=== PATIENT | female | born 1960 | race Caucasian/White ===

== ENCOUNTER 2017-07-03 19:41 | Observation (INO) | payer BC ==
[2017-07-03 21:01] LABS: #Basophils 0.1 thou/uL (0.0-0.2); #Eosinphils 0.5 thou/uL (0.0-0.7); #Lymphocytes 3.5 thou/uL (1.20-3.40); #Monocytes 0.5 thou/uL (0.11-0.59); #Neutrophils 3.6 thou/uL (1.40-6.50); %Basophils 0.9 % (0.0-1.0); %Eosinophils 6.1 % (0.0-10.0); %Lymphocytes 43.1 % (21.0-51.0); %Monocytes 5.7 % (0.0-10.0); Hematocrit 41.4 % (36.0-47.0); Mean Platelet Volume 6.8 fL (7.4-10.4); White Blood Cell (WBC) Count 8.2 thou/uL (4.8-10.8)
[2017-07-03] MEDS ORDERED: Nitroglycerin 0.4 MG TAB (25 Tab Bottle) ONE (21:08)
[2017-07-03] MEDS ORDERED: Nitroglycerin 2% Ointment 1 INCH/1 GM Packet ONE (21:08)
--- NOTE | 2017-07-03 21:14 | RAD ---
PA AND LATERAL CHEST: Date: 07-03-17 History: Chest pain, high blood pressure. Comparison: 02-14-14 FINDINGS: Cardiac silhouette and pulmonary vasculature are within normal limits. The lungs remain clear. Metal lic densities overlie the cervical spine, likely related to anterior fusion with intradiscal prosthe sis. Surgical clips overlie the right upper quadrant. IMPRESSION: No acute cardiopulmonary process. POS: NAEEM
[2017-07-03 21:29] LABS: ALT (SGPT) 48 U/L (8-55); AST (SGOT) 44 U/L (5-34); Alkaline Phosphatase 79 U/L (40-150); Anion Gap 16 mmol/L (10-20); BUN (Urea Nitrogen) 9 mg/dL (9.8-20.1); Bilirubin, Total 0.6 mg/dL (0.2-1.2); CK (CPK) 60 U/L (29-168); Calc. Creatinine Clearance 0 mL/min (70-130); Calcium 10.2 mg/dL (7.8-10.44); Carbon Dioxide 27 mmol/L (22-29); Chloride 107 mmol/L (98-107); Estimated GFR-MDRD 78; Globulin 3.1 g/dL (2.4-3.5); Protein, Total 7.3 g/dL (6.0-8.3)
[2017-07-03 21:33] LABS: Troponin I Less than 0.010 ng/mL (< 0.028)
[2017-07-04 00:10] LABS: Troponin I Less than 0.010 ng/mL (< 0.028)
[2017-07-04] MEDS ORDERED: HYDROcodone/Acetaminophen 5/325 mg Tablet PO PRN ×2 (00:32)
[2017-07-04] MEDS ORDERED: Ondansetron ODT 4 MG TAB SL PRN (00:32)
[2017-07-04] MEDS ORDERED: Ondansetron HCl/PF 4 MG/2 ML Vial IVP PRN ×2 (00:32→03:19)
[2017-07-04] MEDS ORDERED: Acetaminophen 325 MG TAB PO PRN ×2 (00:32→03:19)
[2017-07-04 00:50] VITALS: BMI 32.8
[2017-07-04] MEDS ORDERED: Mag-Al 1200 mg/1200 mg/30 ML UDCUP PO PRN (03:19)
[2017-07-04] MEDS ORDERED: Ondansetron ODT 4 MG TAB PO PRN (03:19)
--- NOTE | 2017-07-04 03:38 | HP ---
PRIMARY CARE PHYSICIAN: Dr. Li at [facility]. CHIEF COMPLAINT: Chest pain. HISTORY OF PRESENT ILLNESS: Ms. Dorsey is a pleasant 57-year-old female that has no significant pas t medical history. She says she was fine until earlier yesterday evening around 6:15 p.m. She says that she was just walking out of the bathroom when suddenly she developed a sharp pain in the cente r of her chest, which then radiated underneath her left breast. She says it was worse when she took in a deep breath or made certain movements and then about 2 minutes after the pain started, she fel t a fluttering like sensation in her chest as well. She said the pain was about 8-9/10 and it would basically come and go, but due to the severity of the pain, she called an ambulance to be brought t o the hospital to have it evaluated. She says all in all, it lasted about 6 hours and it did not go away until still she came to the ER. She denies any nausea, vomiting or diaphoresis. There is no significant radiation to the pain. There has been no dizziness or lightheadedness. She also denies any PND or orthopnea and currently, she is chest pain free. The patient also denies any cough or c ongestion and denies any heavy lifting, but she does say that she had an episode about a year ago wh ere she strained a muscle, the pain was similar, but at this time, the pain went away within a few h ours, but before the pain lasted for days at a time. REVIEW OF SYSTEMS: Constitutional: There have been no fevers, chills, no night sweats, no weight l oss. HEENT: No headaches, no dizziness, no visual changes, no sore throat, no rhinorrhea, neck anthony n, no adenopathy. Pulmonary: No hemoptysis, no cough, no wheezing. Cardiovascular: As the history of present illness. Gastrointestinal: No abdominal pain, no nausea , no vomiting, no change in bowels. Genitourinary: No urinary frequency, hematuria, no hesitancy. Neurologic: No focal weakness, numbness, no seizures. Psychiatric: No symptoms of anxiety or dep ression. Skin and Integument: No skin changes. No rash. 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 PAST SURGICAL HISTORY: She has had a left carpal tunnel release, cholecystectomy, kidney stone surg andreina which sounds like lithotripsy, C2-C7 laminectomy as well as the C5 and C6 diskectomy. ALLERGIES: MORPHINE, which causes itching. SOCIAL HISTORY: She is , has 2 children. She is a nonsmoker, nondrinker. FAMILY HISTORY: Significant for a father who had a stent in his 60s as well as hypertension. CURRENT MEDICATIONS: Include gabapentin 400 mg 3 times a day, Zyrtec 10 mg daily, Singulair 10 mg d aily, and Raloxifene 60 mg daily. PHYSICAL EXAMINATION: GENERAL: She is alert and oriented. She appears to be in no acute distress. VITAL SIGNS: Blood pressure was 122/58, heart rate 74, respiratory rate of 16, temperature is 98.7. HEENT: Her pupils are equal, round, and reactive. Extraocular muscles are intact. Her sclerae are anicteric. Throat: There is no erythema, no exudates. NECK: No adenopathy, no bruits. LUNGS: Clear. No wheezing, no rales. CARDIOVASCULAR: She has a normal S1 and S2. I did not appreciate an S3 or S4. No murmurs, clicks, rubs. ABDOMEN: Obese, it is soft, it is nontender, nondistended. Positive for bowel sounds. There is no rebound, no guarding. EXTREMITIES: No clubbing, cyanosis, no edema. LABORATORY DATA AND X-RAY FINDINGS: White blood cell count was 8.2, hemoglobin 13.7, hematocrit is 41.4, platelets 312. Sodium 145, potassium 5.4, chloride is 107, CO2 is 27, BUN of 9, creatinine 0. 76, glucose is 102. Her EKG was sinus rhythm with no significant ST wave changes. ASSESSMENT AND PLAN: This is a 57-year-old female that presents to the emergency room with chest pa in, which is more or less atypical in description. She had a D-dimer, which was negative and she de nies any significant respiratory symptoms nor any heavy lifting. Therefore, it is reasonable to rul e out coronary artery disease as a cause of her symptoms. She will be placed in observation, ruled out, and we will get a lipid panel as well as a nuclear stress test to help stratify her risk for co ronary artery disease. If her stress test is negative, then her symptoms could be related to her ce rvical spine disease.
[2017-07-04 04:00] LABS: Troponin I Less than 0.010 ng/mL (< 0.028)
[2017-07-04] MEDS ORDERED: Nitroglycerin 2% Ointment 1 INCH/1 GM Packet TOP SCH ×2 (06:00)
[2017-07-04 07:36] VITALS: BP 145/63; TEMP 98.4
[2017-07-04] MEDS ORDERED: Cetirizine HCl 10 MG TAB PO SCH (09:00)
[2017-07-04] MEDS ORDERED: Loratadine 10 MG TAB PO SCH (09:00)
[2017-07-04] MEDS ORDERED: Enoxaparin Sodium 40 MG/0.4 ML SYRINGE SC SCH (09:00)
[2017-07-04] MEDS ORDERED: Gabapentin 400 MG CAP PO SCH (09:00)
[2017-07-04] MEDS ORDERED: Aspirin 325 mg Enteric Coated Tablet PO SCH (09:00)
[2017-07-04] MEDS ORDERED: FLU VACC QS2017-18 36 mo. & older 0.5 ML SYRINGE IM ONE (09:00)
[2017-07-04] MEDS ORDERED: Montelukast Sodium 10 mg Tablet PO SCH (09:00)
[2017-07-04] MEDS ORDERED: Aspirin 325 MG TAB PO SCH (09:00)
--- NOTE | 2017-07-04 14:26 | DIS ---
TRANSFER OF CARE NOTE DATE OF ADMISSION: 07/03/2017 DATE OF DISCHARGE: 07/04/2017 PRIMARY CARE PHYSICIAN: Roxana Li. DISCHARGE DISPOSITION: Home. FINAL DIAGNOSES: 1. Chest pain, noncardiac. 2. History of congenital small spinal canal. DISCHARGE MEDICATIONS: Same as her home medications, Raloxifene 60 mg a day, Singulair 10 mg a day, gabapentin 400 mg 4 times a day, Zyrtec 10 mg a day. ALLERGIES: MORPHINE. PENDING AT THE TIME OF DISCHARGE: Nothing. CODE STATUS: Full. HOSPITAL COURSE: The patient was admitted with sharp chest pain radiated under her left breast, jean claude t to take a deep breath. She is now fine. Her laboratory was unrevealing. EKG; sinus rhythm witho ut significant ST-T abnormality. CBC normal. D-dimer within normal limits. Comp metabolic profile ; borderline potassium 5.4, ALT 44. Cardiac enzymes normal x3. Patient underwent a normal cardiac stress test. I have discussed the results with her. She is comfortable with going home. She has b rut instructed to follow up with her primary care provider in 7 days. CONSULTATIONS: None. PROCEDURES: None.
--- NOTE | 2017-07-04 15:58 | NM ---
NUCLEAR MEDICINE CARDIAC MYOCARDIAL PERFUSION SPECT EJECTION FRACTION STUDY WALL MOTION CINE: HISTORY: 57-year-old female with acute chest pain. TECHNIQUE: This is a stress-only study. Number of days: 1 Rest study: not performed Pharmacologic stress: Lexiscan dose: 0.4 mg Stress study: Tc99m sestamibi (Cardiolite) dose: 33.0 mCi FINDINGS: Uptake throughout the left ventricular myocardium is homogeneous with no perfusion defects. EJECTION FRACTION STUDY EF = 80% WALL MOTION CINE Normal. IMPRESSION: Normal. ERIN Swann POS: ISMA
--- NOTE | 2017-07-09 12:00 | STRESS ---
Acquisition Time: 2017-07-04 11:11:19 Total Exercise Time: 00:06:00 Test Indications: CHEST PAIN Medications: Protocol: PUSHPA Max HR: 153 BPM 95% of Pred: 161 BPM Max BP: 136/088 mmHG Max Work Load: 7.0 METS THE PATIENT EXERCISED FOR 6:00 ON A PUSHPA PROTOCOL. PEAK HEART RATE= 151 BPM AND TARGET HEART RATE= 137 BPM. SHE DID NOT DEVELOP CHEST PAIN. THERE WAS NO SIGNIFICANT ST DEPRESSION. NEGATIVE EXERCISE TREADMILL TEST FOR ISCHEMIA BY ECG CRITERIA. AWAIT NUCLEAR IMAGES FOR DEFINITIVE DIAGNOSIS. Confirmed by LOKESH ROLLE ([id number]), editor sound NASIM RYDER ([id number]) on 07/09/2017 11:59:39 AM Referred By: MD Jenny SANTOYO Confirmed By:LOKESH ROLLE
== END 2017-07-04 14:44 | disposition home or self-care (01) ==
LOC: ERS 19:41 → 2SW 21:50
PROVIDERS: ADMIT Internal Medicine; ATTEND Internal Medicine
DX: R07.89 Other chest pain (principal); M50.30 Other cervical disc degeneration, unspecified cervical region; Z79.899 Other long term (current) drug therapy; Z88.5 Allergy status to narcotic agent; Z90.49 Acquired absence of other specified parts of digestive tract; Z98.890 Other specified postprocedural states; Z82.49 Family history of ischemic heart disease and other diseases of the circulatory system
CPT/HCPCS: 36415; 71020; 78452; 80053; 80061; 82553; 83690; 84484; 85025; 85379; 93005; 93017; 94760; A9500; G0378

== ENCOUNTER 2018-11-19 19:38 | Observation (INO) | payer BC ==
[2018-11-19 20:41] LABS: #Basophils 0.1 thou/uL (0.0-0.2); #Eosinphils 0.4 thou/uL (0.0-0.7); #Lymphocytes 3.2 thou/uL (1.20-3.40); #Monocytes 0.3 thou/uL (0.11-0.59); %Basophils 1.1 % (0.0-1.0); %Eosinophils 5.4 % (0.0-10.0); %Monocytes 4.3 % (0.0-10.0); %Neutrophils 43.2 % (42.0-75.0); Hemoglobin 14.4 g/dL (12.0-16.0); Mean Corpuscular HGB CONC 32.7 g/dL (32.0-36.0); Mean Corpuscular Hemoglobin 30.8 pg (27.0-31.0); Mean Corpuscular Volume 94.2 fL (78.0-98.0); Mean Platelet Volume 6.8 fL (7.4-10.4); Platelet Count 333 thou/uL (130-400); Red Blood Cell (RBC) Count 4.67 mill/uL (4.20-5.40)
[2018-11-19 20:48] LABS: PTT 26.7 SEC (22.9-36.1); Prothrombin Time 13.7 SEC (12.0-14.7)
[2018-11-19 21:03] LABS: ALT (SGPT) 48 U/L (8-55); AST (SGOT) 48 U/L (5-34); Albumin 4.6 g/dL (3.5-5.0); Alkaline Phosphatase 86 U/L (40-150); Anion Gap 15 mmol/L (10-20); BUN (Urea Nitrogen) 8 mg/dL (9.8-20.1); Bilirubin, Total 0.4 mg/dL (0.2-1.2); Calc. Creatinine Clearance 0 mL/min (70-130); Calcium 10.3 mg/dL (7.8-10.44); Carbon Dioxide 28 mmol/L (22-29); Chloride 103 mmol/L (98-107); Estimated GFR-MDRD 66; Globulin 3.3 g/dL (2.4-3.5); Glucose 101 mg/dL (70-105); Potassium 3.9 mmol/L (3.5-5.1); Protein, Total 7.9 g/dL (6.0-8.3); Sodium 142 mmol/L (136-145)
--- NOTE | 2018-11-19 21:29 | CT ---
CT HEAD WITHOUT CONTRAST: Technique: Multiple contiguous axial images were obtained through the head without IV enhancement. Indications: Numbness and tingling, right side facial numbness and tingling. FINDINGS: Ventricles have normal size and position. No evidence of intracranial mass. No hemorrhage or infarct. IMPRESSION: No acute findings. POS: ISMA
[2018-11-19] MEDS ORDERED: Aspirin 81 mg Enteric Coated Tablet ONE (22:35)
[2018-11-19] MEDS ORDERED: Ondansetron PF 4 MG/2 ML Vial IVP PRN (23:36)
[2018-11-19] MEDS ORDERED: Ondansetron ODT 4 MG TAB SL PRN (23:36)
[2018-11-19] MEDS ORDERED: Acetaminophen 325 MG TAB PO PRN (23:36)
--- NOTE | 2018-11-20 00:24 | HP ---
PRIMARY CARE PHYSICIAN: Jaden Greenfield. CHIEF COMPLAINT: Numbness on right side of the face. HISTORY OF PRESENT ILLNESS: Ms. Danae Dorsey is a 58-year-old female with past medical history of back pain status post multiple surgeries, who presents to the emergency department for right facial numbness going on since this morning. The patient also noted some swelling as well. The patient denies any fever, chills, cough, sore throat, abdominal pain, nausea, or vomiting. The patient reports that she has history of intermittent asthma. The patient denies any previous similar symptoms in the past. The patient reported that her swelling seems to be getting worse, and she was concerned and that is why she came to the ER. PAST MEDICAL HISTORY: Include; 1. Kidney stones. 2. Asthma. 3. Chronic neck pain. PAST SURGICAL HISTORY: Includes; 1. Laminectomy. 2. Carpal tunnel surgery. SOCIAL HISTORY: The patient denies any alcohol, smoking, or illicit drugs. FAMILY HISTORY: Includes father with coronary artery disease and history of Carballo's palsy. MEDICATIONS: The patient takes gabapentin. ALLERGIES: MORPHINE. REVIEW OF SYSTEMS: Ten-point review of system negative other than mentioned in the HPI. PHYSICAL EXAMINATION: VITAL SIGNS: Blood pressure 123/84, heart rate 88, respiration rate 18, temperature 98.3, and O2 saturation 98% on room air. GENERAL: The patient is alert and interactive. HEAD: Atraumatic. EARS, NOSE, AND THROAT: No drainage, bleeding, or exudate noted. NECK: No lymphadenopathy. EYES: Extraocular movement intact. CARDIOVASCULAR: Heart rate, regular. Rhythm is regular. No murmur, rubs, or gallops. PULMONARY: Clear bilaterally. No wheezes. ABDOMEN: Soft, nontender. Bowel sounds positive. EXTREMITIES: No edema. NEUROLOGIC: Cranial nerves, grossly intact. The patient noted to have swelling right side of her face below her eyes and her mouth. The patient needs to have decrease facial bray below her eyes, through her mouth and jaw. Sensation was fully intact. Bilateral lower extremity strength 5+/5. Sensation in lower extremity, fully intact. SKIN: No rashes noted. DIAGNOSTIC STUDIES: CT of the head, negative for acute CVA. ASSESSMENT AND PLAN: 1. Right-sided facial numbness. 2. Chronic back pain and neck pain. 3. The patient's right face swelling and numbness likely due to Carballo's palsy versus transient ischemic attack. MRI, echocardiogram, ultrasound, carotid ordered. Given that she still have differential of Carballo's palsy, we will order valacyclovir and steroids. Pain medication p.r.n. ordered. We will have PT, OT, and speech therapy to see the patient in the morning. We will continue diet at this point because the patient seems to be tolerating diet without any problem. If the patient is noted to have dysphagia, we will make the patient n.p.o. 4. Chronic pain, p.r.n. pain medication added. 5. The patient is full code. 6. Medical power of bag filler, . 7. Deep venous thrombosis prophylaxis addressed. Job ID: [id number] MTDD
[2018-11-20 00:25] VITALS: BMI 33.7
[2018-11-20] MEDS ORDERED: Gabapentin 400 MG CAP PO SCH ×3 (00:45→15:00)
[2018-11-20] MEDS ORDERED: hydrALAZINE 20 MG/ML VIAL SLOW IVP PRN (01:19)
[2018-11-20] MEDS ORDERED: Bisacodyl 5 MG TAB PO PRN (01:19)
[2018-11-20] MEDS ORDERED: Acetaminophen 325 MG TAB PO PRN (01:19)
[2018-11-20] MEDS ORDERED: Sodium Chloride 0.9% 1,000 ML IV SCH (01:19)
[2018-11-20] MEDS ORDERED: Ondansetron PF 4 MG/2 ML Vial IVP PRN (01:19)
[2018-11-20] MEDS ORDERED: Labetalol HCl 100 MG/20 ML VIAL SLOW IVP PRN (01:19)
[2018-11-20] MEDS ORDERED: HYDROcodone/Acetaminophen 5/325 mg Tablet PO PRN (01:19)
[2018-11-20 05:44] LABS: #Basophils 0.1 thou/uL (0.0-0.2); #Eosinphils 0.5 thou/uL (0.0-0.7); #Lymphocytes 3.4 thou/uL (1.20-3.40); #Monocytes 0.6 thou/uL (0.11-0.59); #Neutrophils 3.2 thou/uL (1.40-6.50); %Basophils 0.7 % (0.0-1.0); %Eosinophils 6.1 % (0.0-10.0); %Lymphocytes 44.2 % (21.0-51.0); %Monocytes 7.3 % (0.0-10.0); %Neutrophils 41.8 % (42.0-75.0); Hemoglobin 14.3 g/dL (12.0-16.0); Mean Corpuscular HGB CONC 33.1 g/dL (32.0-36.0); Mean Corpuscular Hemoglobin 30.6 pg (27.0-31.0); Mean Corpuscular Volume 92.6 fL (78.0-98.0); Mean Platelet Volume 7.2 fL (7.4-10.4); Platelet Count 256 thou/uL (130-400); RBC Distribution Width 11.1 % (11.5-14.5); Red Blood Cell (RBC) Count 4.66 mill/uL (4.20-5.40); White Blood Cell (WBC) Count 7.6 thou/uL (4.8-10.8)
[2018-11-20 05:50] LABS: Anion Gap 13 mmol/L (10-20); BUN (Urea Nitrogen) 7 mg/dL (9.8-20.1); Calc. Creatinine Clearance 124 mL/min (70-130); Calcium 9.5 mg/dL (7.8-10.44); Carbon Dioxide 22 mmol/L (22-29); Cardiac Risk 4.8 (Less than 4.5); Chloride 106 mmol/L (98-107); Cholesterol 235 mg/dl (< 200 Desired); Estimated GFR-MDRD 85; Glucose 88 mg/dL (70-105); HDL Cholesterol 49 mg/dL (>60 Neg Risk); LDL Cholesterol, Calculated 155 mg/dL; Potassium 4.1 mmol/L (3.5-5.1); Sodium 137 mmol/L (136-145); Triglycerides 157 mg/dL (Less than 150)
[2018-11-20] MEDS ORDERED: predniSONE 20 MG TAB PO SCH (08:00)
[2018-11-20] MEDS ORDERED: Enoxaparin Sodium 40 MG/0.4 ML SYRINGE SC SCH (09:00)
[2018-11-20] MEDS ORDERED: Aspirin 325 MG TAB PO SCH (09:00)
[2018-11-20] MEDS ORDERED: valACYclovir 500 MG TAB PO SCH (09:00)
[2018-11-20] MEDS ORDERED: Tetrahydrozoline 0.05% OPTH 15 ML BOT EA EYE SCH (09:00)
--- NOTE | 2018-11-20 10:56 | MRI ---
MRI BRAIN: HISTORY: Right-sided facial numbness since last night. TECHNIQUE: Multiplanar, multisequence, noncontrast enhanced MR images of the brain are obtained. FINDINGS: Images demonstrate mild left to right nasal septal deviation. The brain is unremarkable. No evidence of intracranial masses, hemorrhages, strokes, or contusions s een. No evidence of diffusion restriction seen. No significant evidence of major intracranial flow void is seen. IMPRESSION: Normal noncontrast enhanced magnetic resonance images of the brain. POS: ISMA
[2018-11-20 11:48] VITALS: BP 147/72; TEMP 98.4
--- NOTE | 2018-11-20 12:10 | PDOC.PN ---
- Subjective Encounter Start Date: 11/20/18 Encounter Start Time: 12:08 Ms. Dorsey was seen today in follow-up of right facial numbness. She says it is better, but she notes a thick feeling in her tongue. She does not have any weakness in her extremities. - Objective Resuscitation Status - Order Detail: 11/19/18 23:17 Resuscitation Status Routine Resuscitation Status: FULL: Full Resuscitation MAR Reviewed: Yes Vital Signs & Weight: Vital Signs (12 hours) Temp Pulse Pulse Pulse Resp BP BP 11/20/18 11:48 98.4 F 88 16 11/20/18 08:55 80 85 136/60 145/74 H 11/20/18 08:00 97.7 F 78 18 11/20/18 04:00 97.6 F 77 18 BP Pulse Ox 11/20/18 11:48 147/72 H 96 11/20/18 08:55 11/20/18 08:00 129/71 100 11/20/18 04:00 111/54 L 98 Weight Weight 203 lb 3 oz I&O: 11/19/18 11/20/18 11/21/18 06:59 06:59 06:59 Intake Total 560 480 Balance 560 480 Result Diagrams: 11/20/18 05:19 11/20/18 05:19 Phys Exam - Physical Examination HEENT: PERRLA Respiratory: no wheezing, no rales, no rhonchi, clear to auscultation bilateral Cardiovascular: RRR, no significant murmur, no rub Gastrointestinal: soft, non-tender, positive bowel sounds Musculoskeletal: no edema Neurological: non-focal CN- 2-12 are intact. She was able to keep her eyes shut against resistance, no facial droop/asymmetry Dx/Plan (1) Transient ischemic attack Code(s): G45.9 - TRANSIENT CEREBRAL ISCHEMIC ATTACK, UNSPECIFIED Status: Acute (2) Dyslipidemia Code(s): E78.5 - HYPERLIPIDEMIA, UNSPECIFIED Status: Acute (3) Obesity (BMI 30.0-34.9) Code(s): E66.9 - OBESITY, UNSPECIFIED Status: Acute - Plan * Right facial numbness- most likely a TIA. She does not have evidence of 7th nerve palsy. * Modifiable risk factor is dyslipidemia- we discussed statin 's and she says she is intolerant. She had severe muscle pain due to this, and it continued even after the addition of Co-Q 10. She says it took 4 months for the muscle pain to resolve, after she discontinued the statin. Recommend outpatient Cardiology referral, and adding aspirin 81 mg a day * She is stable for discharge home .
--- NOTE | 2018-11-20 12:30 | ULT ---
CAROTID DUPLEX SONOGRAM: HISTORY: TIA. Vascular disease. FINDINGS: RIGHT: COLOR AND SPECTRAL DOPPLER EVALUATION: A peak systolic velocity of 88 cm per second and an ICA/CCA r atio of 0.8 suggests no hemodynamically significant stenosis within the extracranial right ICA. Ante grade flow within the vertebral artery. LEFT: COLOR AND SPECTRAL DOPPLER EVALUATION: A peak systolic velocity of 76 cm per second and an ICA/CCA r atio of 0.7 suggests no hemodynamically significant stenosis within the extracranial left ICA. Anteg rade flow within the vertebral artery. IMPRESSION: No sonographic evidence of significant extracranial internal carotid artery stenosis. POS: ISMA
--- NOTE | 2018-11-21 04:52 | DIS ---
DATE OF ADMISSION: 11/19/2018 DATE OF DISCHARGE: 11/20/2018 PRIMARY CARE PHYSICIAN: Through Roxana iL at [facility]. DISCHARGE DIAGNOSES: 1. Transient ischemic attack. 2. Dyslipidemia. 3. Obesity with a BMI of 33. 4. Asthma. 5. Chronic back pain. DISCHARGE MEDICATIONS: Include: 1. Aspirin 81 mg daily. 2. Raloxifene 60 mg daily. 3. Singulair 10 mg daily. 4. Gabapentin 400 mg t.i.d. 5. Flexeril 10 mg twice daily. 6. Vitamin D3 two tablets daily. 7. Zyrtec 10 mg daily. PROCEDURES DONE DURING ADMISSION: The patient had a CT scan of the brain showing no acute findings. She also had an MRI of the brain showing normal noncontrast MRI of the brain and bilateral carotid Dopplers, which was negative for any flow-limiting disease. It was also noted that her cholesterol is elevated with a total cholesterol of 235 and an LDL of 155, HDL of 49. CODE STATUS: Full code. ALLERGIES: MORPHINE AND STATINS. HOSPITAL COURSE: Ms. Dorsey is a pleasant 58-year-old female, who presented to the emergency room complaining of right facial numbness. She denied having any numbness or weakness in her extremities. There was concern for possible transient ischemic attack, as well as Carballo's palsy. She was placed in observation for this. The following day, the right facial numbness improved. It was noted on exam that she did not have any weakness in the facial nerve distribution or the seventh nerve. She was able to keep her eyes shut tightly. There was no asymmetry. I was not able to open her eyes when they were shut on either side. There was no facial droop. No shift of the uvula. No swelling or thickness of her tongue. Her symptoms almost completely resolved and therefore, this is likely result of a transient ischemic attack. Her modifiable risk factor seen was dyslipidemia. Unfortunately, she has tried statins in the past and that she is intolerant. It causes severe muscle pain. She says she even tried CoQ10, which did not help and it took 4 months for the muscle pain to resolve. For this reason, she will not be discharged on statin but recommend an outpatient cardiology evaluation to see if she would be a candidate for Repatha. We will, however, be placing her on a baby aspirin daily and have discussed regular exercise as well as improve diet, and she can follow up with her primary care physician in 1 week. Job ID: [id number]
== END 2018-11-20 14:10 | disposition home or self-care (01) ==
LOC: ERS 19:38 → 2SE 23:19
PROVIDERS: ADMIT Family Medicine; ATTEND Family Medicine
DX: G45.9 Transient cerebral ischemic attack, unspecified (principal); E78.5 Hyperlipidemia, unspecified; J45.909 Unspecified asthma, uncomplicated; G89.29 Other chronic pain; M54.2 Cervicalgia; M54.9 Dorsalgia, unspecified; E66.9 Obesity, unspecified; Z68.33 Body mass index [BMI] 33.0-33.9, adult; Z79.899 Other long term (current) drug therapy; Z88.5 Allergy status to narcotic agent; Z88.8 Allergy status to other drugs, medicaments and biological substances; Z98.890 Other specified postprocedural states
CPT/HCPCS: 36415; 70450; 70551; 80048; 80053; 80061; 84484; 85025; 85610; 85730; 87070; 87081; 87430; 93005; 93306; 93880; 96372; G0378; J1650